=== PATIENT | female | born 1935 | race Caucasian/White ===

== ENCOUNTER 2017-09-01 14:55 | Inpatient (IN) | payer MEDICARE, OTHER ==
[~2017-09-01] VITALS: Ht 172.7 cm; Wt 71.2 kg
[~2017-09-01 14:55] MED LIST: ACET325 PO; ACET500; ASPI81CH PO; ASPI81EC PO; BISA5EC PO; CALCAVITDA PO; CARV3.125 PO; CIPR250 PO; COMBIVENT RESPIM4 GM INH; CRUTCH USE; Cardizem CD 12120 MG PO; DOCU100 PO; ELIQUIS2.5 MG PO; FLUSAL2505; FLUT1DIS5 INH; HYDACE5 PO; LEVO750 PO; MELA3 PO; METO25 PO; METR250 PO; MULVITA PO; Milk Of Ma400 MG/5 M PO; NAPR500 PO; NITR100CA PO; Norco 5-325 Ta1 EACH PO; OXYGEN; PROBIOTICS; RXHYDACE PO; TIOT18 IH; [UNRECOGNIZED DRUG - MIXTURE] PO
[2017-09-01] MEDS ORDERED: TIOT18 INH (15:11)
[2017-09-01 15:59] LABS: Anion Gap 2 mmol/L (6-16); Blood Urea Nitrogen 11 mg/dL (8-24); Bun/Creatinine Ratio 24.6 (12.0-20.0); CO2, Blood 40 mmol/L (21-32); Calcium, Blood 9.2 mg/dL (8.5-10.1); Chloride, Blood 103 mmol/L (98-108); Creatinine, Blood 0.45 mg/dL (0.40-1.00); Glomerular Filtration Rate >60 (60-); Glucose, Blood 156 mg/dL (70-99); Potassium, Blood 4.6 mmol/L (3.5-5.5); Sodium, Blood 145 mmol/L (136-145); Troponin I <0.015 ng/mL (0.000-0.040)
[2017-09-01 16:43] LABS: BASOPHILS ABSOLUTE AUTO 0.02 K/mm3 (0.00-0.23); BASOPHILS PERCENT AUTO 0 % (0-2); EOSINOPHILS ABSOLUTE AUTO 0.08 K/mm3 (0.00-0.68); EOSINOPHILS PERCENT AUTO 2 % (0-6); Hematocrit 42.3 % (33.0-51.0); Hemoglobin 13.1 g/dL (11.5-16.0); IMMATURE GRAN ABSOLUTE AUTO 0.01 K/mm3 (0.00-0.10); IMMATURE GRAN PERCENT AUTO 0 % (0-1); LYMPHOCYTES ABSOLUTE AUTO 1.07 K/mm3 (0.84-5.20); LYMPHOCYTES PERCENT AUTO 21 % (21-46); MONOCYTES ABSOLUTE AUTO 0.24 K/mm3 (0.16-1.47); MONOCYTES PERCENT AUTO 5 % (4-13); Mean Corpuscular Volume 97 fL (80-100); NEUTROPHILS ABSOLUTE AUTO 3.62 K/mm3 (1.96-9.15); NEUTROPHILS PERCENT AUTO 72 % (41-73); RDW Coefficient Variation 13.6 % (11.7-14.2); RDW Standard Deviation 48.6 fL (35.1-46.3); Red Blood Cell Count 4.36 M/mm3 (3.80-5.20); White Blood Cell Count 5.04 K/mm3 (4.00-11.30)
[2017-09-01 16:52] LABS: Mean Platelet Volume 10.6 fL (9.1-12.4); Platelet Count 60 K/mm3 (150-400)
[2017-09-02 05:10] LABS: Hematocrit 39.5 % (33.0-51.0); Hemoglobin 12.3 g/dL (11.5-16.0); Mean Corpuscular HGB 29.7 pg (26.0-34.0); Mean Corpuscular HGB Conc 31.1 g/dL (31.5-36.5); Mean Corpuscular Volume 95 fL (80-100); Mean Platelet Volume 10.2 fL (9.1-12.4); Platelet Count 177 K/mm3 (150-400); RDW Coefficient Variation 13.6 % (11.7-14.2); RDW Standard Deviation 48.2 fL (35.1-46.3); Red Blood Cell Count 4.14 M/mm3 (3.80-5.20); White Blood Cell Count 6.22 K/mm3 (4.00-11.30)
[2017-09-02 05:42] LABS: Albumin, Blood 3.2 g/dL (3.4-5.0); Anion Gap 8 mmol/L (6-16); Blood Urea Nitrogen 14 mg/dL (8-24); Bun/Creatinine Ratio 31.2 (12.0-20.0); CO2, Blood 36 mmol/L (21-32); Calcium, Blood 9.5 mg/dL (8.5-10.1); Chloride, Blood 98 mmol/L (98-108); Creatinine, Blood 0.45 mg/dL (0.40-1.00); Glomerular Filtration Rate >60 (60-); Glucose, Blood 176 mg/dL (70-99); Phosphorus, Blood 2.4 mg/dL (2.5-4.9); Potassium, Blood 4.1 mmol/L (3.5-5.5); Sodium, Blood 142 mmol/L (136-145)
[2017-09-03 14:09] LABS: Source, Urine Clean Catch
[2017-09-03 14:13] LABS: Bilirubin, Urine Neg (Neg); Blood, Urine 1+ (Neg); Glucose Qualitative, Urine 2+ (Neg); Ketones, Urine Neg (Neg); Leukocyte Esterase, Urine 1+ (Neg); Nitrite, Urine Neg (Neg); Protein, Urine Neg (Neg); Specific Gravity, Urine 1.025 (1.003-1.022); Urobilinogen, Urine NORM (Normal)
[2017-09-03 14:22] LABS: Appearance, Urine Hazy (Clear); Color, Urine Yellow (P-Yellow)
[2017-09-03 14:28] LABS: Bacteria Many /hpf; Red Blood Cells, Urine 0-2 /hpf (0-2); Squamous Epithelial Cells Many /hpf (Few)
[2017-09-03 14:29] LABS: Yeast/Fungi Urine Mod /hpf
[2017-09-03 14:30] LABS: Calcium Oxalate Crystals Few /hpf
[2017-09-04] MEDS ORDERED: LEVFLO250 PO (14:36)
[2017-09-04] MEDS ORDERED: PRED10 PO (14:38)
[2018-05-01] MEDS ORDERED: XARELTO20 MG PO (20:43)
[2018-05-01] MEDS ORDERED: TIZANIDINE HCL4 MG PO (20:45)
[2018-05-01] MEDS ORDERED: ALBU2.5V5 NEB (20:45)
[2018-05-02] MEDS ORDERED: Pedi-Dri 100,0060 GM (02:11)
[2018-05-02] MEDS ORDERED: CALCA400CH PO (02:13)
[2018-05-02] MEDS ORDERED: Fish Oil 10001000 MG PO (02:15)
[2018-05-02] MEDS ORDERED: PROBIOTIC1 EAC1 PO (02:16)
[2018-05-02] MEDS ORDERED: ERGO400 PO (02:18)
[2018-05-02] MEDS ORDERED: CYAN500 PO (02:18)
[2018-05-02] MEDS ORDERED: ACET325 PO (02:21)
[2018-05-02] MEDS ORDERED: Milk Of Ma400 MG/5 M PO (02:22)
[2018-05-05] MEDS ORDERED: ALBU90OI INH (11:26)
[2018-05-05] MEDS ORDERED: LEVO750 PO (11:26)
[2018-05-05] MEDS ORDERED: DELTASONE20 MG PO (11:27)
== END 2017-09-04 15:09 | disposition home or self-care (01) | DRG 189 ==
LOC: ER 14:55 → MEDS 17:49 → ENPENDDIS 09-04 11:51 → MEDS 09-04 15:09
PROVIDERS: Emergency Medicine; Family Medicine; Internal Medicine
DX: J96.21 Acute and chronic respiratory failure with hypoxia (principal); D69.6 Thrombocytopenia, unspecified; I48.2 Chronic atrial fibrillation; J44.1 Chronic obstructive pulmonary disease with (acute) exacerbation; J44.0 Chronic obstructive pulmonary disease with (acute) lower respiratory infection; J20.9 Acute bronchitis, unspecified; Z99.81 Dependence on supplemental oxygen; Z88.5 Allergy status to narcotic agent; Z79.82 Long term (current) use of aspirin; Z79.51 Long term (current) use of inhaled steroids; Z79.899 Other long term (current) drug therapy; Z87.891 Personal history of nicotine dependence
CPT/HCPCS: 36415; 71046; 80048; 80069; 81001; 83880; 84484; 85025; 87086; 93005; 93010; 94640; 94760; 94762; 96374; 97110; 97116; 97162; 97166; 97530; 97535; 99285; G8978; G8979; G8987; G8988; J2930

== ENCOUNTER 2017-09-12 12:22 | Emergency (ER) | payer MEDICARE, OTHER ==
[~2017-09-12] VITALS: Ht 172.7 cm; Wt 65.8 kg
[~2017-09-12 12:22] MED LIST changes: +LEVFLO250 PO; +PRED10 PO; +TIOT18 INH
[2017-09-12 12:46] LABS: BASOPHILS ABSOLUTE AUTO 0.01 K/mm3 (0.00-0.23); BASOPHILS PERCENT AUTO 0 % (0-2); EOSINOPHILS ABSOLUTE AUTO 0.19 K/mm3 (0.00-0.68); EOSINOPHILS PERCENT AUTO 2 % (0-6); Hematocrit 40.4 % (33.0-51.0); Hemoglobin 12.7 g/dL (11.5-16.0); IMMATURE GRAN ABSOLUTE AUTO 0.06 K/mm3 (0.00-0.10); IMMATURE GRAN PERCENT AUTO 1 % (0-1); LYMPHOCYTES ABSOLUTE AUTO 0.68 K/mm3 (0.84-5.20); LYMPHOCYTES PERCENT AUTO 7 % (21-46); MONOCYTES ABSOLUTE AUTO 0.62 K/mm3 (0.16-1.47); MONOCYTES PERCENT AUTO 6 % (4-13); Mean Corpuscular HGB Conc 31.4 g/dL (31.5-36.5); Mean Corpuscular Volume 96 fL (80-100); Mean Platelet Volume 9.5 fL (9.1-12.4); NEUTROPHILS PERCENT AUTO 84 % (41-73); Platelet Count 179 K/mm3 (150-400); RDW Coefficient Variation 14.2 % (11.7-14.2); RDW Standard Deviation 49.9 fL (35.1-46.3); Red Blood Cell Count 4.23 M/mm3 (3.80-5.20); White Blood Cell Count 9.86 K/mm3 (4.00-11.30)
[2017-09-12 12:59] LABS: Alanine Aminotransfer (ALT/SGP 20 U/L (12-78); Albumin/Globulin Ratio 0.9 (0.8-1.8); Alk Phos 89 U/L (50-136); Anion Gap 2 mmol/L (6-16); Aspartate Aminotrans (AST/SGOT 9 U/L (12-37); Bilirubin, Total 0.4 mg/dL (0.1-1.0); Blood Urea Nitrogen 14 mg/dL (8-24); Bun/Creatinine Ratio 28.2 (12.0-20.0); CO2, Blood 39 mmol/L (21-32); Calcium, Blood 9.3 mg/dL (8.5-10.1); Chloride, Blood 99 mmol/L (98-108); Globulin, Blood 3.2 g/dL (2.2-4.0); Glomerular Filtration Rate >60 (60-); Glucose, Blood 193 mg/dL (70-99); Potassium, Blood 4.4 mmol/L (3.5-5.5); Sodium, Blood 140 mmol/L (136-145); Total Protein, Blood 6.2 g/dL (6.4-8.2)
[2017-09-12 13:01] LABS: Source, Urine Catheter
[2017-09-12 13:16] LABS: Appearance, Urine Hazy (Clear); Bilirubin, Urine Neg (Neg); Blood, Urine 1+ (Neg); Color, Urine Yellow (P-Yellow); Glucose Qualitative, Urine Neg (Neg); Ketones, Urine Neg (Neg); Leukocyte Esterase, Urine 1+ (Neg); Nitrite, Urine Neg (Neg); Protein, Urine Neg (Neg); Urobilinogen, Urine NORM (Normal)
[2017-09-12 13:31] LABS: Red Blood Cells, Urine 0-2 /hpf (0-2); Squamous Epithelial Cells Not Seen /hpf (Few)
[2017-09-12 13:32] LABS: Amorphous Light (0-Heavy); Bacteria Few /hpf
[2017-09-12] MEDS ORDERED: HYDR1TAB94 PO (13:49)
[2017-09-12] MEDS ORDERED: CEPH500 PO (13:52)
[2018-05-01] MEDS ORDERED: XARELTO20 MG PO (20:43)
[2018-05-01] MEDS ORDERED: TIZANIDINE HCL4 MG PO (20:45)
[2018-05-01] MEDS ORDERED: ALBU2.5V5 NEB (20:45)
[2018-05-02] MEDS ORDERED: Pedi-Dri 100,0060 GM (02:11)
[2018-05-02] MEDS ORDERED: CALCA400CH PO (02:13)
[2018-05-02] MEDS ORDERED: Fish Oil 10001000 MG PO (02:15)
[2018-05-02] MEDS ORDERED: PROBIOTIC1 EAC1 PO (02:16)
[2018-05-02] MEDS ORDERED: ERGO400 PO (02:18)
[2018-05-02] MEDS ORDERED: CYAN500 PO (02:18)
[2018-05-02] MEDS ORDERED: ACET325 PO (02:21)
[2018-05-02] MEDS ORDERED: Milk Of Ma400 MG/5 M PO (02:22)
[2018-05-05] MEDS ORDERED: LEVO750 PO (11:26)
[2018-05-05] MEDS ORDERED: ALBU90OI INH (11:26)
[2018-05-05] MEDS ORDERED: DELTASONE20 MG PO (11:27)
== END 2017-09-12 14:57 | disposition home or self-care (01) ==
LOC: ER 12:22
PROVIDERS: Emergency Medicine
DX: G89.29 Other chronic pain (principal); M54.5 Low back pain; N39.0 Urinary tract infection, site not specified; J44.9 Chronic obstructive pulmonary disease, unspecified; Z79.82 Long term (current) use of aspirin; Z79.899 Other long term (current) drug therapy; Z88.5 Allergy status to narcotic agent
CPT/HCPCS: 36415; 80053; 81001; 85025; 87086; 99283; P9612

== ENCOUNTER → 2017-10-31 | Outpatient (CLI) | payer MEDICARE, OTHER ==
[~2017-10-31] MED LIST changes: +CEPH500 PO; +HYDR1TAB94 PO
[2017-10-31 21:21] LABS: Bilirubin, Urine Neg (Neg); Blood, Urine Neg (Neg); Glucose Qualitative, Urine Neg (Neg); Ketones, Urine Neg (Neg); Leukocyte Esterase, Urine Neg (Neg); Nitrite, Urine Neg (Neg); Protein, Urine Neg (Neg); Specific Gravity, Urine 1.015 (1.003-1.022); Urobilinogen, Urine NORM (Normal); pH, Urine 6.5 (5.0-8.0)
[2017-10-31 21:27] LABS: Appearance, Urine Clear (Clear); Color, Urine Yellow (P-Yellow)
== END ==
LOC: EDSTATUS 13:08 → LAB RH 21:12
PROVIDERS: Internal Medicine
DX: N39.0 Urinary tract infection, site not specified (principal)
CPT/HCPCS: 81003; 87086

== ENCOUNTER 2018-08-01 10:56 | Inpatient (IN) | payer MEDICARE, OTHER ==
[~2018-08-01] VITALS: Ht 162.6 cm; Wt 65.3 kg
[~2018-08-01 10:56] MED LIST changes: +ALBU2.5V5 NEB; +ALBU90OI INH; +CALCA400CH PO; +CYAN500 PO; +DELTASONE20 MG PO; +ERGO400 PO; +Fish Oil 10001000 MG PO; +PROBIOTIC1 EAC1 PO; +Pedi-Dri 100,0060 GM; +TIZANIDINE HCL4 MG PO; +XARELTO20 MG PO
[2018-08-01] MEDS ORDERED: CALCIUM PO (11:15)
[2018-08-01] MEDS ORDERED: INCRUSE ELLI62.5 MCG INH (11:16)
[2018-08-01] MEDS ORDERED: PROBIOTIC1 EAC1 PO (11:16)
[2018-08-01] MEDS ORDERED: CHOL10002 PO (11:17)
[2018-08-01] MEDS ORDERED: DOCU100 PO (11:18)
[2018-08-01] MEDS ORDERED: Artificial Tea1 EACH BOTHEYES (11:20)
[2018-08-01] MEDS ORDERED: ACET325S PR (11:21)
[2018-08-01] MEDS ORDERED: HYDR1TAB94 PO (11:23)
[2018-08-01] MEDS ORDERED: PROAIR RESPICL90 MCG INH (11:25)
[2018-08-01] MEDS ORDERED: TYZINE BOTHEYES (11:27)
[2018-08-01 11:43] LABS: BASOPHILS ABSOLUTE AUTO 0.04 K/mm3 (0.00-0.23); BASOPHILS PERCENT AUTO 0 % (0-2); EOSINOPHILS PERCENT AUTO 0 % (0-6); Hematocrit 39.5 % (33.0-51.0); IMMATURE GRAN ABSOLUTE AUTO 0.06 K/mm3 (0.00-0.10); IMMATURE GRAN PERCENT AUTO 0 % (0-1); LYMPHOCYTES ABSOLUTE AUTO 0.45 K/mm3 (0.84-5.20); LYMPHOCYTES PERCENT AUTO 3 % (21-46); MONOCYTES ABSOLUTE AUTO 0.84 K/mm3 (0.16-1.47); MONOCYTES PERCENT AUTO 5 % (4-13); Mean Corpuscular HGB 30.9 pg (26.0-34.0); Mean Corpuscular HGB Conc 32.9 g/dL (31.5-36.5); Mean Corpuscular Volume 94 fL (80-100); Mean Platelet Volume 9.6 fL (9.1-12.4); NEUTROPHILS ABSOLUTE AUTO 16.26 K/mm3 (1.96-9.15); NEUTROPHILS PERCENT AUTO 92 % (41-73); Platelet Count 186 K/mm3 (150-400); RDW Coefficient Variation 13.4 % (11.7-14.2); RDW Standard Deviation 46.2 fL (35.1-46.3); Red Blood Cell Count 4.21 M/mm3 (3.80-5.20); White Blood Cell Count 17.65 K/mm3 (4.00-11.30)
[2018-08-01 11:56] LABS: Alanine Aminotransfer (ALT/SGP 14 U/L (12-78); Albumin, Blood 3.4 g/dL (3.4-5.0); Albumin/Globulin Ratio 0.9 (0.8-1.8); Alk Phos 80 U/L (50-136); Anion Gap 10 mmol/L (6-16); Aspartate Aminotrans (AST/SGOT 14 U/L (12-37); Bilirubin, Total 0.5 mg/dL (0.1-1.0); Blood Urea Nitrogen 17 mg/dL (8-24); CO2, Blood 26 mmol/L (21-32); Calcium, Blood 8.8 mg/dL (8.5-10.1); Chloride, Blood 100 mmol/L (98-108); Creatinine, Blood 0.63 mg/dL (0.40-1.00); Globulin, Blood 3.7 g/dL (2.2-4.0); Glomerular Filtration Rate >60 (60-); Glucose, Blood 180 mg/dL (70-99); Potassium, Blood 4.1 mmol/L (3.5-5.5); Sodium, Blood 136 mmol/L (136-145); Total Protein, Blood 7.1 g/dL (6.4-8.2)
--- NOTE | 2018-08-01 13:09 | NUR ---
Brief visit with poatient respirations labored, coarse cough. Pt anxious states chest aches with cough. Minimal supportive conversation and reassurance. Copy opf POLST on file placed on chart, asked nursing to get pt some tylenol. Will follow up with plan of care. will update shoe caser.
[2018-08-01 14:36] LABS: PCO2 Arterial 39.2 mmHg (35-45); PO2 Arterial 64.3 mmHg (80-100); pH Blood Arterial 7.46 (7.35-7.45)
[2018-08-01 14:50] LABS: Source, Urine Catheter
[2018-08-01 14:55] LABS: Appearance, Urine Clear (Clear); Bilirubin, Urine Neg (Neg); Blood, Urine 2+ (Neg); Color, Urine Yellow (P-Yellow); Glucose Qualitative, Urine Neg (Neg); Ketones, Urine Neg (Neg); Leukocyte Esterase, Urine Neg (Neg); Nitrite, Urine Neg (Neg); Protein, Urine Neg (Neg); Specific Gravity, Urine 1.015 (1.003-1.022); Urobilinogen, Urine NORM (Normal)
[2018-08-01 15:09] LABS: Bacteria Not Seen /hpf; Red Blood Cells, Urine 0-2 /hpf (0-2); Squamous Epithelial Cells Rare /hpf (Few); White Blood Cells, Urine Not Seen /hpf (0-5)
--- NOTE | 2018-08-01 15:55 | NUR ---
ADMIT: PT ARRIVED TO ICU 1 AT 1325. PT LETHARGIC, FALLS ASLEEP WHEN NOT BEING SPOKEN TO. ON 2L/NC AND SPO2 91%. PT COUGHING AND CLEARING HER THROAT. NO FAMILY AT THE BEDSIDE. CALL LIGHT WITHIN REACH. BED ALARM ON.
--- NOTE | 2018-08-01 20:15 | NUR ---
RECIEVED REPORT FROM [facility]. AWAITING ARRIVAL TO UNIT.
--- NOTE | 2018-08-01 20:18 | NUR ---
TRANSFER TO MEDICAL FLOOR REPORT CALLED. ALL QUESTIONS ANSWERED. PT TAKEN TO ROOM 328 VIA BED WITH ASSOCIATE PROFESSOR OF ANTHROPOLOGY. ALL BELONGING AND MEDS SENT WITH PT.
--- NOTE | 2018-08-01 20:31 | NUR ---
PT ARRIVED TO UNIT VIA STRETCHER, 3 PERS TRANSFER TO BED. PT ON 2L VIA NC. D5W LR @ 75 ML/HR. RESPONDS TO VERBAL STIMULI AND FALLS BACK ASLEEP. VIERA CATH PATENT AND DRAINING. VSS. WILL CONT TO MONITOR.
--- NOTE | 2018-08-01 20:36 | NUR ---
I AGREE WITH PRIOR RN'S ASSESSMENTS.
--- NOTE | 2018-08-02 06:24 | NUR ---
SHIFT SUMMARY: PT ARRIVED TO UNIT EARLIER IN THE SHIFT FROM ICU. PT AWAKENS TO VERBAL STIMULI; MUMBLES SOME WORDS; FALLS BACK ASLEEP. VSS. 2L VIA NC; BASELINE. VIERA IN PLACE; PATENT + DRAINING. Q2H REPOSITION, NO SKIN BREAK DOWN NOTED. RECIEVING D5 LR @ 75 ML/HR. PT TO HAVE CT SCAN THIS AM. NO FAMILY IN ROOM THIS SHIFT. NO OTHER ACUTE CHANGES TO REPORT. WILL CONT TO MONITOR AND PROVIDE CARE UNTIL PRESUMED BY ONCOMING RN.
--- NOTE | 2018-08-02 17:27 | NUR ---
SHIFT SUMMARY PT HAS BEEN UP TO CHAIR 2X THIS SHIFT. PT HAS BEEN ALERT & ORIENTED MOST THE DAY. VSS. PT EATING WELL. SPEECH THERAPY ASSESSED & RECCOMENDED NECTAR THICK FLUIDS AND NO STRAWS. NO OTHER CHANGES IN ASSESSMENT AT THIS TIME. PT LIVES AT [facility] AND PLANS TO DC THERE. PT HAS DENIED PAIN THIS SHIFT. VIERA DC'D. PT YET TO VOID. BLADDER SCAN OF 208. WILL CONTINUE TO MONITOR UNTIL TURNOVER IS COMPLETE.
[2018-08-03 05:00] LABS: BASOPHILS ABSOLUTE AUTO 0.02 K/mm3 (0.00-0.23); BASOPHILS PERCENT AUTO 0 % (0-2); EOSINOPHILS ABSOLUTE AUTO 0.03 K/mm3 (0.00-0.68); EOSINOPHILS PERCENT AUTO 0 % (0-6); Hematocrit 32.9 % (33.0-51.0); Hemoglobin 10.6 g/dL (11.5-16.0); IMMATURE GRAN ABSOLUTE AUTO 0.11 K/mm3 (0.00-0.10); IMMATURE GRAN PERCENT AUTO 1 % (0-1); LYMPHOCYTES PERCENT AUTO 5 % (21-46); MONOCYTES PERCENT AUTO 5 % (4-13); Mean Corpuscular HGB 29.9 pg (26.0-34.0); Mean Corpuscular HGB Conc 32.2 g/dL (31.5-36.5); Mean Corpuscular Volume 93 fL (80-100); NEUTROPHILS ABSOLUTE AUTO 11.64 K/mm3 (1.96-9.15); NEUTROPHILS PERCENT AUTO 89 % (41-73); Platelet Count 175 K/mm3 (150-400); RDW Coefficient Variation 13.3 % (11.7-14.2); RDW Standard Deviation 45.3 fL (35.1-46.3); Red Blood Cell Count 3.55 M/mm3 (3.80-5.20)
[2018-08-03 05:27] LABS: Alanine Aminotransfer (ALT/SGP 7 U/L (12-78); Albumin, Blood 2.4 g/dL (3.4-5.0); Albumin/Globulin Ratio 0.8 (0.8-1.8); Alk Phos 67 U/L (50-136); Anion Gap 7 mmol/L (6-16); Aspartate Aminotrans (AST/SGOT 12 U/L (12-37); Bilirubin, Total 0.8 mg/dL (0.1-1.0); Blood Urea Nitrogen 17 mg/dL (8-24); CO2, Blood 29 mmol/L (21-32); Calcium, Blood 7.9 mg/dL (8.5-10.1); Chloride, Blood 105 mmol/L (98-108); Creatinine, Blood 0.52 mg/dL (0.40-1.00); Globulin, Blood 3.1 g/dL (2.2-4.0); Glomerular Filtration Rate >60 (60-); Glucose, Blood 164 mg/dL (70-99); Potassium, Blood 3.8 mmol/L (3.5-5.5); Sodium, Blood 141 mmol/L (136-145); Total Protein, Blood 5.5 g/dL (6.4-8.2)
--- NOTE | 2018-08-03 07:29 | NUR ---
alert at baseline, 2 person assist to transfer to bsc, 2L via nc, call light in reach, iv infusing with no s/sx of infection or infiltration at site, walking rounds completed with day shift staff
--- NOTE | 2018-08-03 12:34 | NUR ---
PT. ONLY ABLE TO VOID SMALL AMTS. WITH PVR OF 500 CC. PLACED 16 [place] VIERA CATHETER WITH 800 CC RETURN. ALSO SET UP SUCTION FOR PT. TO USE FOR SECRETIONS.
[2018-08-03 12:36] LABS: Source, Urine Catheter
[2018-08-03 12:39] LABS: Bilirubin, Urine Neg (Neg); Blood, Urine 2+ (Neg); Glucose Qualitative, Urine 2+ (Neg); Ketones, Urine Neg (Neg); Leukocyte Esterase, Urine Neg (Neg); Nitrite, Urine Neg (Neg); Protein, Urine 2+ (Neg); Urobilinogen, Urine NORM (Normal)
[2018-08-03 13:03] LABS: Appearance, Urine Clear (Clear); Color, Urine Yellow (P-Yellow)
[2018-08-03 13:04] LABS: Bacteria Rare /hpf; Squamous Epithelial Cells Rare /hpf (Few); White Blood Cells, Urine 0-2 /hpf (0-5)
--- NOTE | 2018-08-03 13:06 | NUR ---
PT GAVE PERMISSION 08.03.18 TO HAVE STUDENT NURSE ROGER TAKE CARE OF HER THE MORNING OF 08.04.18
--- NOTE | 2018-08-03 16:54 | NUR ---
Call from nursing. Pt was placed on comfort care. Discussed current orders. CT scan is ordered, chest therapy vest ordered and may not be appropriate for comfort patient. Pt is sitting up in bed, self suctioning. She is alert, oriented at this time. Family is present. Son and . Reviewed care plan. Comfort care is okay. Discussed hospice services, pt will be discharging to [facility]. Advised that or personnel representative needs to be there to sign papers. Discussed roles of hospice in [facility] setting. Nurses to make visits with patient, review symptoms and medications. Bath aid available to assist, social worker palliative care and completion supervisor if needed. Family and pt verbalizes understanding of this and agrees. Spoke with Dr. Anderson. He has concerns about obstruction at this time and CT scan is required. Vest therapy can be cancelled due to comfort measures orders. No other concerns at this time. Will remain available.
--- NOTE | 2018-08-03 17:04 | NUR ---
Chart review. Pt on comfort measures. Recommend d/c of non-essential PO medications such as vitamins B & D, fish oil to reduce pill burden, especially on a high risk for aspiration patient. Also recommend d/c of IV fluids and antibiotics per protocol for comfort measures.
--- NOTE | 2018-08-03 18:25 | NUR ---
Mrs. Hudson was alone in room. she was eating lunch and moving slowly. she did not respond to me verbally, but smiled easily. Sat bedside her and told her little jokes. She appeared to enjoy companionship. Per chart, no taoist preference and she did not respond to question of prayer. I will remain available to pt and family.
--- NOTE | 2018-08-03 19:42 | NUR ---
PT. LYING IN BED. DENIES PAIN OR NAUSEA. PT. GIVEN MARTAKER TO SUCTION FOR EXCRETONS, USES IT CORRECTLY. PT A&O.
--- NOTE | 2018-08-04 07:32 | NUR ---
a+o, down for ct last night, call light in reach, saline locked, slow to speak, deconditioned
[2018-08-04] MEDS ORDERED: CLIN300 PO (10:43)
[2018-08-04] MEDS ORDERED: ALBU3IS INH (10:44)
--- NOTE | 2018-08-04 11:45 | NUR ---
REPORT CALLED TO LUCIAN FARRIS AT THAT PT. WAS COMING BACK TO THEIR FACILITY ON HOS[facility]. VIERA CATHETER LEFT IN PLACE. [facility] TO FOLLOW PT. AT [facility].
== END 2018-08-04 11:44 | DRG 871 ==
LOC: ER 10:56 → ICUE 15:18 → MEDS 15:18 → ICUW 15:18 → MEDS 15:31 → ICUE 15:33 → MEDS 20:22 → ENPENDDIS 08-04 09:56 → MEDS 08-04 11:44
PROVIDERS: Family Medicine; Internal Medicine; ADMIT Internal Medicine
DX: A41.9 Sepsis, unspecified organism (principal); J69.0 Pneumonitis due to inhalation of food and vomit; J96.21 Acute and chronic respiratory failure with hypoxia; G93.41 Metabolic encephalopathy; J44.1 Chronic obstructive pulmonary disease with (acute) exacerbation; I48.0 Paroxysmal atrial fibrillation; G20 Parkinson's disease; Z51.5 Encounter for palliative care; Z87.891 Personal history of nicotine dependence; Z99.81 Dependence on supplemental oxygen; Z85.51 Personal history of malignant neoplasm of bladder; Z66 Do not resuscitate; I10 Essential (primary) hypertension; Z79.01 Long term (current) use of anticoagulants; F01.50 Vascular dementia, unspecified severity, without behavioral disturbance, psychotic disturbance, mood disturbance, and anxiety; Z96.652 Presence of left artificial knee joint; Z96.643 Presence of artificial hip joint, bilateral; Z23 Encounter for immunization
CPT/HCPCS: 36415; 36600; 51702; 70450; 71046; 71250; 80053; 81001; 82803; 82947; 83605; 83880; 85025; 87040; 87086; 92526; 92610; 93005; 93010; 94640; 94667; 94760; 96361; 96365; 96367; 96375; 97110; 97116; 97162; 97165; 97530; 99285-25; J0456; J0696; J1940; J2930; J7050; J7120

== ENCOUNTER → 2018-10-19 | Outpatient (CLI) | payer MEDICARE, OTHER ==
[~2018-10-19] MED LIST changes: +ACET325S PR; +ALBU3IS INH; +Artificial Tea1 EACH BOTHEYES; +CALCIUM PO; +CHOL10002 PO; +CLIN300 PO; +INCRUSE ELLI62.5 MCG INH; +PROAIR RESPICL90 MCG INH; +TYZINE BOTHEYES
[2018-10-19 10:43] LABS: Bilirubin, Urine Neg (Neg); Blood, Urine 5+ (Neg); Glucose Qualitative, Urine Neg (Neg); Ketones, Urine Neg (Neg); Leukocyte Esterase, Urine 3+ (Neg); Nitrite, Urine Neg (Neg); Protein, Urine 3+ (Neg); Urobilinogen, Urine NORM (Normal)
[2018-10-19 10:53] LABS: Appearance, Urine Turbid (Clear); Bacteria Many /hpf; Red Blood Cells, Urine TNTC /hpf (0-2); Squamous Epithelial Cells Rare /hpf (Few); White Blood Cells, Urine TNTC /hpf (0-5)
== END | disposition home or self-care (01) ==
LOC: LAB RH 09:34 → EDSTATUS 10:18
PROVIDERS: Internal Medicine
DX: N39.0 Urinary tract infection, site not specified (principal)
CPT/HCPCS: 81001; 87077; 87086; 87186